=== PATIENT | female | born 2000 | race Caucasian/White ===

== ENCOUNTER 2022-03-11 14:04 | Emergency (ER) | payer OTHER ==
[~2022-03-11] VITALS: Ht 157.5 cm; Wt 124.7 kg
[2022-03-11] MEDS ORDERED: BUSPIRONE HCL7.5 MG PO (14:32)
[2022-03-11] MEDS ORDERED: METFORMIN HCL500 MG PO (14:33)
== END 2022-03-11 17:13 | disposition home or self-care (01) ==
LOC: ED 14:04
DX: R10.2 Pelvic and perineal pain (principal); Z79.899 Other long term (current) drug therapy; Z79.84 Long term (current) use of oral hypoglycemic drugs
CPT/HCPCS: 36415; 76830; 76856; 80053; 81001; 83690; 83735; 84703; 85025; 99284-25; A9270

== ENCOUNTER 2024-09-05 00:08 | Emergency (ER) | payer SELFPAY ==
[~2024-09-05] VITALS: Ht 157.5 cm; Wt 100.0 kg
[~2024-09-05 00:08] MED LIST: BUSPIRONE HCL7.5 MG PO; METFORMIN HCL500 MG PO
[2024-09-05 01:02] LABS: BILIRUBIN, URINE NEGATIVE (negative); BLOOD/HGB, URINE LARGE (Negative); KETONE, URINE NEGATIVE (Negative); LEUK ESTERASE, URINE SMALL (negative); NITRITE, URINE NEGATIVE (negative)
[2024-09-05 01:18] LABS: WHITE BLOOD CELLS, URINE 21-40 /HPF (0-5)
[2024-09-05 01:19] LABS: EPITHELIAL CELLS, URINE NONE SEEN /lpf (0-1+)
[2024-09-05 01:20] LABS: BACTERIA, URINE 2+ /hpf (negative); CASTS, URINE NONE SEEN \\lpf; COLLECTION TYPE, URINE CLEAN CATCH; CRYSTALS, URINE NONE SEEN (0-1+); REFLEX CULTURE, URINE Yes (No)
[2024-09-05] MEDS ORDERED: ONDANSETRON ODT8 MG PO (01:24)
[2024-09-05] MEDS ORDERED: TRAMADOL HCL50 MG PO (01:24)
[2024-09-05] MEDS ORDERED: CEFDINIR300 MG PO (01:24)
[2024-09-05] MEDS ORDERED: ONDANSETRON 4 MG HOME.PACK SL ONE (01:30)
[2024-09-05] MEDS ORDERED: CEFDINIR 300 MG HOME.PACK PO ONE (01:30)
[2024-09-05] MEDS ORDERED: TRAMADOL HCL 50 MG HOME.PACK PO ONE (01:30)
[2024-09-05] MEDS ORDERED: KETOROLAC TROMETHAMINE 60 MG/2 ML VIAL IM ONE (01:30)
[2024-09-05 01:49] VITALS: BP 124/69
== END 2024-09-05 01:45 | disposition home or self-care (01) ==
LOC: ED 00:08
PROVIDERS: Family Medicine
DX: N39.0 Urinary tract infection, site not specified (principal)
CPT/HCPCS: 81001; 87077; 87088; 96372; 99284; A9270; J1885